=== PATIENT | male | born 1955 | race Caucasian/White ===

== ENCOUNTER 2018-07-27 08:38 | Day surgery (SDC) | payer OTHER ==
[2018-07-27] MEDS ORDERED: Sodium Chloride 0.9% 1,000 ML IV SCH (09:15)
[2018-07-27] MEDS ORDERED: fentaNYL 100 MCG/2 ML SDV ONE (09:28)
[2018-07-27] MEDS ORDERED: Midazolam 1 MG/ML 2 ML SDV ONE (09:28)
[2018-07-27] MEDS ORDERED: Propofol 200 MG/20 ML SDV ONE (09:29)
--- NOTE | 2018-07-30 13:52 | OR ---
DATE OF PROCEDURE: 07/27/2018 SURGEON: Kiel Lubin MD PROCEDURE: Colonoscopy. FINDINGS: 1. Ascending colon polyp, approximately 5 mm, completely removed using cold biopsy forceps. 2. Ascending colon polyp, approximately 8 mm, completely removed using cold snare. COMPLICATIONS: None. [employer] MANAGER: None. ANESTHESIA: MAC. PREOPERATIVE DIAGNOSIS: Screening colonoscopy/history of polyps. POSTOPERATIVE DIAGNOSIS: Screening colonoscopy/history of polyps. RISKS: Risks, benefits, alternatives, and limitations including, but not limited to infection, bleeding, and perforation were explained to the patient, who wished to proceed. PROCEDURE IN DETAIL: The patient was placed in left lateral decubitus position. Digital rectal exam was performed without abnormality. The scope was introduced and advanced atraumatically to the ileocecal valve. The scope was brought back to the ascending, transverse, descending colon, and retroflexed. The aforementioned polyps were all identified and completely removed as described above. No abnormal bleeding. No diverticulosis. No other masses. No evidence of colitis. No abnormalities on retroflex. The patient tolerated the procedure well. Kiel Lubin MD /[id number]
== END 2018-07-27 11:13 | disposition home or self-care (01) ==
LOC: JP.SDS 08:38
PROVIDERS: ATTEND Surgery
DX: Z12.11 Encounter for screening for malignant neoplasm of colon (principal); D12.2 Benign neoplasm of ascending colon; E11.9 Type 2 diabetes mellitus without complications; Z86.010 Personal history of colon polyps
CPT/HCPCS: 45380; 45385; J2250; J2704; J3010; J7030; 88305

== ENCOUNTER 2018-11-09 05:59 | Day surgery (SDC) | payer OTHER ==
[2018-11-09] MEDS ORDERED: Nozin Nasal Sanitizer NASBOTH ONE (06:00)
[2018-11-09] MEDS ORDERED: ceFAZolin 2 GM in Sodium Chloride 0.9% 50 ML IV ONE (06:30)
[2018-11-09] MEDS ORDERED: Lactated Ringers 1,000 ML IV SCH (06:30)
[2018-11-09] MEDS ORDERED: Bupivacaine 0.5% 50 ML MDV ONE (06:57)
[2018-11-09] MEDS ORDERED: Bupivacaine 0.5% 30 ML SDV ONE (07:35)
[2018-11-09] MEDS ORDERED: Midazolam 1 MG/ML 2 ML SDV ONE (07:35)
[2018-11-09] MEDS ORDERED: Propofol 200 MG/20 ML SDV ONE ×3 (07:35→09:43)
[2018-11-09] MEDS ORDERED: fentaNYL 100 MCG/2 ML SDV ONE ×2 (07:35→08:50)
[2018-11-09] MEDS ORDERED: Dexamethasone 4 MG/ML SDV ONE (08:18)
[2018-11-09] MEDS ORDERED: Ondansetron 4 MG/2 ML SDV ONE (08:18)
[2018-11-09] MEDS ORDERED: Labetalol 20 MG/4 ML Syringe ONE (08:47)
[2018-11-09] MEDS ORDERED: hydrALAZINE 20 MG/ML SDV ONE (08:52)
[2018-11-09] MEDS ORDERED: Acetaminophen/oxyCODONE 325-5 MG Tab PO PRN (10:51)
--- NOTE | 2018-11-09 17:10 | OR ---
DATE OF PROCEDURE: 11/09/2018 PREOPERATIVE DIAGNOSIS: Rotator cuff tear, right shoulder. POSTOPERATIVE DIAGNOSES: 1. Rotator cuff tear, right shoulder. 2. Biceps tendinopathy. PROCEDURE: Arthroscopy, right shoulder, with debridement of biceps tendon and arthroscopic repair of rotator cuff. ANESTHESIA: Scalene block with sedation. INDICATIONS: Mr. Gonzalez is a 63-year-old gentleman with a history of injury to his right shoulder resulting in persistent pain and difficulty with overhead reaching and lifting. Examination and imaging are consistent with a full-thickness rotator cuff tear with mild retraction. Due to symptomatic nature of the tear, I recommended repair of a rotator cuff. Risks, benefits, and potential complications of the procedure were discussed. He agrees to proceed. DESCRIPTION OF PROCEDURE: After adequate anesthesia was obtained, the patient was placed in the lateral decubitus position and secured with the beanbag positioner. The right shoulder and arm were then prepped and draped in a sterile fashion. 10 pounds of traction was placed in the shoulder traction unit. Standard posterior portal was established. Glenohumeral joint was inspected. This revealed intact articular cartilage on the humeral head and glenoid. The glenoid labrum was intact. Biceps attachment was intact with no SLAP tear. Biceps tendon itself showed tendinopathy with superficial fraying up into the bicipital groove. Subscapularis was intact. Rotator cuff showed a full-thickness tear with mild-to- moderate retraction. Anterior portal was established and superficial fraying of the biceps tendon was debrided using a combination of the shaver and the ablation wand. The scope was then withdrawn from the joint and placed into the subacromial space. The lateral portal was established. Significant amount of bursal tissue and inflamed tissue was present within the subacromial space. This was cleared using a combination of shaver and radiofrequency ablation. The extent of the tear was identified. The edge of the tear showed significant thickening and fraying with retraction of just over a centimeter. Undersurface of the acromion was cleared of soft tissue and a alice was used to perform an acromioplasty removing approximately 4 to 5 mm from the undersurface of the acromion and bevelling it anteriorly and laterally. Soft tissues were then cleared from the rotator cuff footprint with ablation wand and a alice was used to lightly decorticate the surface of the tuberosity. Two [employer]ite[employer] Healix anchors were then placed, one anterior and one posterior on the footprint. All 4 limbs of each of the anchors were then passed through the edge of the tendon using the [employer] device, getting back into solid tendon. These were then tied down from posterior to anterior providing excellent approximation of the tendon to the tuberosity. One of the anterior and one of the posterior suture sets were then placed into a Healix knotless anchor, and this was secured out over the lateral edge of the tuberosity slightly posteriorly. The other 2 sets of sutures were placed through a second knotless anchor, which was then secured into the tuberosity more anterior creating a crisscross suture bridge. This secured the tendon nicely to the tuberosity. The arm was taken through internal and external rotation. No significant tension was noted on the repair. Level of the acromioplasty was evaluated and was adequate. Scope was then withdrawn. Port sites were closed with 2-0 Vicryl in the dermal layer and Steri-Strips were applied. Sterile dressing was then placed. The patient tolerated the procedure well. There were no complications. He was taken from the operating room in a stable condition. Greg Dhaliwal MD /[id number]
== END 2018-11-09 12:10 | disposition home or self-care (01) ==
LOC: JP.SDS 05:59
PROVIDERS: ATTEND Specialist
DX: S46.011A Strain of muscle(s) and tendon(s) of the rotator cuff of right shoulder, initial encounter (principal); M75.21 Bicipital tendinitis, right shoulder; I10 Essential (primary) hypertension; I42.9 Cardiomyopathy, unspecified; E11.9 Type 2 diabetes mellitus without complications; E78.00 Pure hypercholesterolemia, unspecified; X58.XXXA Exposure to other specified factors, initial encounter; Z79.84 Long term (current) use of oral hypoglycemic drugs; Z79.899 Other long term (current) drug therapy
CPT/HCPCS: 29826; 29827; A9270; C1713; J0360; J0690; J1100; J2250; J2405; J2704; J3010; J3490; J7050; J7120